=== PATIENT | female | born 1995 | race Caucasian/White ===

== ENCOUNTER 2022-03-27 23:42 | Emergency (ER) | payer OTHER, BC, SELFPAY ==
[2022-03-27 23:46] VITALS: BP 139/94; PULSE 95; RESP 14; TEMP 36.6; O2SAT 97; BMI 28.7
[2022-03-28 01:11] VITALS: BP 118/72; PULSE 78; RESP 15; O2SAT 99
[2022-03-28 01:17] LABS: Basophils % 0.5 %; Eosinophils # 0.1 10^3/uL (0.0-0.8); Eosinophils % 1.4 %; Hematocrit 37.8 % (37.0-47.0); Hemoglobin 12.2 g/dL (11.5-15.3); Lymphocytes # 2.1 10^3/uL (0.8-4.8); Lymphocytes % 26.5 %; Mean Corpuscular HGB Conc 32.3 g/dL (30.0-36.0); Mean Corpuscular Hemoglobin 26.9 pg (28.0-34.0); Mean Corpuscular Volume 83.4 fl (81-99); Mean Platelet Volume 10.3 fL (7.4-10.4); Monocytes # 0.6 10^3/uL (0.2-0.9); Monocytes % 7.5 %; Neutrophils # 5.18 10^3/uL (1.8-7.7); Nucleated Red Blood Cells % 0 %; Platelet Count 263 10^3/cmm (130-400); Red Blood Count 4.53 10^6/uL (4.1-5.3); Red Cell Distribution Width 12.8 % (12.1-15.1); White Blood Count 8.1 10^3/uL (4.0-10.0)
--- NOTE | 2022-03-28 01:23 | CTR_ITS ---
PROCEDURE INFORMATION: Exam: CT Abdomen And Pelvis Without Contrast Exam date and time: 03/28/2022 2:02 AM Age: 26 years old Clinical indication: Abdominal pain; Patient HX: C/O left flank pain with nausea. Five weeks post . ; Additional info: Concern for renal stone, hcg not back yet, but PT 5 weeks post- and denies any TECHNIQUE: Imaging protocol: Computed tomography of the abdomen and pelvis without contrast. Radiation optimization: All CT scans at this facility use at least one of these dose optimization techniques: automated exposure control; mA and/or kV adjustment per patient size (includes targeted exams where dose is matched to clinical indication); or iterative reconstruction. COMPARISON: No relevant prior studies available. RADIATION DOSE METRICS: Total DLP (mGy-cm): 807.83 FINDINGS: Lungs: The lung bases are clear. Liver: Unremarkable. Gallbladder and bile ducts: No definite gallbladder abnormality by CT. No biliary tree dilation. Pancreas: Unremarkable. Spleen: Unremarkable. Adrenal glands: Unremarkable. Kidneys and ureters: Several small left intrarenal calculi. Moderate left hydronephrosis and hydroureter. There is a 4 mm distal left ureteral calculus, at the UVJ. Several small right intrarenal calculi. No right hydronephrosis or visible right ureteral calculus. Stomach and bowel: No significant bowel distention. There are no CT findings to strongly suggest diverticulitis. Appendix: The appendix is possibly identified, and there are no suspicious findings for appendicitis. No pericecal inflammatory changes are seen. Intraperitoneal space: No free intraperitoneal air, or ascites. Vasculature: No evidence for abdominal aortic aneurysm. Lymph nodes: No retroperitoneal adenopathy. Urinary bladder: Suspect mild to moderate diffuse urinary bladder wall thickening. Evaluation is somewhat limited, as the bladder is not well distended. While nonspecific, this could indicate evidence for cystitis. Please correlate clinically. 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 Bones/joints: No significant acute finding. Soft tissues: Very small umbilical hernia, containing only fat. CT/CT kidney stone [id number] IMPRESSION: 1. 4 mm distal left ureteral calculus, see additional details above. 2. Moderate left hydronephrosis and hydroureter. 3. Bilateral intrarenal calculi. 4. Suspected urinary bladder wall thickening, see above. 5. Other findings discussed above.
[2022-03-28 01:33] LABS: HCG, Serum Qual Negative (Negative)
[2022-03-28 01:37] LABS: Alanine Aminotransferase 27 U/L (0-33); Albumin Level 4.2 g/dL (3.5-5.2); Alkaline Phosphatase 97 U/L (35-105); Anion Gap 16.5 (5-19); Blood Urea Nitrogen 9 mg/dL (6-20); Calcium 8.9 mg/dL (8.5-10.5); Carbon Dioxide 24 mmol/L (22-29); Chloride 105 mmol/L (98-107); Globulin 2.7 g/dL (1.3-4.6); Glomerular Filtration Rate 76.9 mL/min (90-130); Glucose 103 mg/dL (65-115); Lipase 18 U/L (13-60); Osmolality Calculated 291 mOsm/kg (285-295); Potassium 4.5 mmol/L (3.5-5.1); Sodium 141 mmol/L (136-145); Total Bilirubin 0.3 mg/dL (0.15-1.2); Total Protein 6.9 g/dL (6.6-8.7)
[2022-03-28 01:42] LABS: Urine Appearance Cloudy (CLEAR); Urine Color Yellow (Yellow)
[2022-03-28 01:44] LABS: Glucose Urine UA Norm (Normal); Ketones Urine 1+ (Negative); Protein Urine 1+ (Negative); pH Urine 5 (5-7)
[2022-03-28 01:45] LABS: Add Urine Culture? No; Add Urine Microscopic? YES; Amorphous Sediment Urine 3+ /hpf; Bilirubin Urine Neg (Negative); Blood Urine 3+ (Negative); Leukocyte Esterase Urine Trace (Negative); Nitrate Urine Negative (Negative); Urobilinogen Urine 1 mg/dL (Negative); WBC Urine 0-4 /hpf (0-5)
[2022-03-28 01:46] LABS: Aspartate Amino Transferase 5 U/L (0-32)
[2022-03-28] MEDS: ibuprofen 800 mg tablet PO (02:32)
[2022-03-28 02:50] VITALS: BP 127/72; PULSE 82; RESP 15; O2SAT 99
--- NOTE | 2022-03-28 03:03 | ED_ITS ---
Documented by User: Ysabel Chaves DISABILITY CASE MANAGER-C 03/28/22 03:09 HPI - Back Pain/Injury General: Chief Complaint: Back Pain/Injury Stated Complaint: Possible Kidney Stone Time Seen by Provider: 03/28/22 01:06 History of Present Illness: Patient is in today reporting that she thinks she has a kidney stone. Patient reports that she was having some frequency and burn ing with urination all day but then about 7:00 at night started having some left sided back pain. She reports that she has had many kidney stones in the past without stones approximately 3 years ago. She reports that she did go ahead and take some Zofran at home. She reports that she is 5 weeks and breast-feeding her . She denies any fever or chills. Associated symptoms: Reports urinary urgency; Deny chills or fever(s) Review of Systems Const: Denies: fever(s), chills or body aches Card: Denies: chest pain, palpitations or irregular heart rhythm Resp: Denies: dyspnea, productive cough or non-productive cough : Reports: flank pain, urinary frequency, urinary urgency and urinary hesitancy Physical Exam Const: COMMON NORMALS: patient oriented x3 and alert OTHER: Patient does appear in pain. Had a discussion with patient about pain medication and she does not want to take anything that would necessarily alter her breast-feeding. Neck/C-Spine: COMMON NORMALS: no JVD Resp: COMMON NORMALS: normal respiratory effort, No use of accessory muscles and clear to auscultation bilaterally AUSCULTATION: clear to auscultation bilaterally Cardio: COMMON NORMALS: no JVD, regular rate, regular rhythm, S1 normal heart sound present, S2 normal heart sound present and No murmurs present (Cardio) RATE: regular rate RHYTHM: regular rhythm HEART SOUNDS: S1 normal heart sound present and S2 normal heart sound present GI: COMMON NORMALS: Normal to inspection, nondistended, normoactive bowel sounds present, Soft to palpation and non-tender PALPATION: Yes Soft to palpation : BLADDER/KIDNEY EXAM: Yes CVA tenderness on the left Back/Pelvis: GENERAL BACK: Yes CVA tenderness Neuro: COMMON NORMALS: patient oriented x3 SENSORIUM/ORIENTATION: Yes alert Course Vital Signs: Vital signs: Vital Signs Temperature 97.8 F 03/27/22 23:46 Pulse Rate 71 03/28/22 05:05 Respiratory Rate 14 03/28/22 05:05 Blood Pressure 136/81 03/28/22 05:05 Pulse Oximetry 95 03/28/22 05:05 Oxygen Delivery Me thod 03/28/22 05:05 MDM - Back Pain/Injury Medical Decision Making Differentials include renal stone, UTI, pyelonephritis Ordered patient ibuprofen one-time dose for anti-inflammatory effect. Patient became upset and wanted to discuss different pain medication. We discussed other pain medication options but I recommended that she would need to pump and dump for a period of time to be safe for breast-feeding. Patient discussed this with her spouse and then decided that she did not want to have pain medication at this time. Morphine was ordered. Patient is already had 8 mg of Zofran just before arrival. Meclizine ordered x1 dose. Awaiting CT results. UA shows 3+ hematuria. Labs 03/28/22 01:05 03/28/22 01:05 Radiology Impressions Abdomen/Pelvis CT 03/28/22 01:23 IMPRESSION: 1. 4 mm distal left ureteral calculus, see additional details above. 2. Moderate left hydronephrosis and hydroureter. 3. Bilateral intrarenal calculi. 4. Suspected urinary bladder wall thickening, see above. 5. Other findings discussed above. Laboratory Results WBC 8.1 10^3/uL (4.0-10.0) 03/28/22 01:05 RBC 4.53 10^6/uL (4.1-5.3) 03/28/22 01:05 Hgb 12.2 g/dL (11.5-15.3) 03/28/22 01:05 Hct 37.8 % (37.0-47.0) 03/28/22 01:05 MCV 83.4 fl (81-99) 03/28/22 01:05 MCH 26.9 pg (28.0-34.0) L 03/28/22 01:05 MCHC 32.3 g/dL (30.0-36.0) 03/28/22 01:05 RDW 12.8 % (12.1-15.1) 03/28/22 01:05 Plt Count 263 10^3/cmm (130-400) 03/28/22 01:05 MPV 10.3 fL (7.4-10.4) 03/28/22 01:05 Neut % (Auto) 64.0 % 03/28/22 01:05 Lymph % (Auto) 26.5 % 03/28/22 01:05 Richardson % (Auto) 7.5 % 03/28/22 01:05 Eos % (Auto) 1.4 % 03/28/22 01:05 Baso % (Auto) 0.5 % 03/28/22 01:05 Neut # (Auto) 5.18 10^3/uL (1.8-7.7) 03/28/22 01:05 Lymph # (Auto) 2.1 10^3/uL (0.8-4.8) 03/28/22 01:05 Richardson # (Auto) 0.6 10^3/uL (0.2-0.9) 03/28/22 01:05 Eos # (Auto) 0.1 10^3/uL (0.0-0.8) 03/28/22 01:05 Baso # (Auto) 0.0 10^3/uL (0.0-0.1) 03/28/22 01:05 Nucleated RBC % (auto) 0 % 03/28/22 01:05 Nucleated RBCs # 0.0 /100WBC 03/28/22 01:05 Sodium 141 mmol/L (136-145) 03/28/22 01:05 Potassium 4.5 mmol/L (3.5-5.1) 03/28/22 01:05 Chloride 105 mmol/L (98-107) 03/28/22 01:05 Carbon Dioxide 24 mmol/L (22-29) 03/28/22 01:05 Anion Gap 16.5 (5-19) 03/28/22 01:05 BUN 9 mg/dL (6-20) 03/28/22 01:05 Creatinine 0.9 mg/dL (0.5-0.9) 03/28/22 01:05 GFR Calculation 76.9 mL/min (90-130) L 03/28/22 01:05 Glucose 103 mg/dL (65-115) 03/28/22 01:05 Calculated Osmolality 291 mOsm/kg (285-295) 03/28/22 01:05 Calcium 8.9 mg/dL (8.5-10.5) 03/28/22 01:05 Total Bilirubin 0.3 mg/dL (0.15-1.2) 03/28/22 01:05 AST 5 U/L (0-32) 03/28/22 01:05 ALT 27 U/L (0-33) 03/28/22 01:05 Alkaline Phosphatase 97 U/L (35-105) 03/28/22 01:05 Total Protein 6.9 g/dL (6.6-8.7) 03/28/22 01:05 Albumin 4.2 g/dL (3.5-5.2) 03/28/22 01:05 Globulin 2.7 g/dL (1.3-4.6) 03/28/22 01:05 Lipase 18 U/L (13-60) 03/28/22 01:05 HCG, Qual Negative (Negative) 03/28/22 01:05 Urine Color Yellow (Yellow) 03/27/22 23:57 Urine Appearance Cloudy (CLEAR) A 03/27/22 23:57 Urine pH 5 (5-7) 03/27/22 23:57 Ur Specific [place] 1.030 (1.005-1.030) 03/27/22 23:57 Urine Protein 1+ (Negative) H 03/27/22 23:57 Urine Glucose (UA) Norm (Normal) 03/27/22 23:57 Urine Ketones 1+ (Negative) H 03/27/22 23:57 Urine Blood 3+ (Negative) H 03/27/22 23:57 Urine Nitrate Negative (Negative) 03/27/22 23:57 Urine Bilirubin Neg (Negative) 03/27/22 23:57 Urine Urobilinogen 1 mg/dL (Negative) H 03/27/22 23:57 Ur Leukocyte Esterase Trace (Negative) H 03/27/22 23:57 Urine RBC 10-15 /hpf (0-2) H 03/27/22 23:57 Urine WBC 0-4 /hpf (0-5) H 03/27/22 23:57 Ur Squamous Epith Cells 5-10 /hpf (0-5) H 03/27/22 23:57 Amorphous Sediment 3+ /hpf 03/27/22 23:57 Urine Bacteria None /hpf (NONE) 03/27/22 23:57 Discharge Plan Discharge Patient Disposition: Home Clinical Impression: Kidney stone Condition: Stable Prescriptions: New hydrocodone-acetaminophen 5-325 mg tablet 1 tab PO Q6H PRN (Reason: pain) Qty: 14 0RF ondansetron 4 mg tablet,disintegrating 4 mg PO Q6H PRN (Reason: nausea and vomiting) Qty: 14 0RF Discharge Orders: Discharge ED (Routine); Ordered 03/28/22 Ordered By: Zhen Moore Referrals: Flaquito Rodriguez MD [Physician] - 1-3 days Discharge Diet: Advance as tolerated Discharge Activity: Resume usual activity Patient Instructions: Kidney Stones (ED), Opioid Safety Coding Level of Care Code ED Personnel Associate for Chg Fwd Exam Detailed Documented by User: Zhen Moore MD 03/28/22 05:36 HPI - Back Pain/Injury General: Chief Complaint: Back Pain/Injury Stated Complaint: Possible Kidney Stone Time Seen by Provider: 03/28/22 01:06 Course Vital Signs: Vital signs: Vital Signs Temperature 97.8 F 03/27/22 23:46 Pulse Rate 71 03/28/22 05:05 Respiratory Rate 14 03/28/22 05:05 Blood Pressure 136/81 03/28/22 05:05 Pulse Oximetry 95 03/28/22 05:05 Oxygen Delivery Me thod 03/28/22 05:05 MDM - Back Pain/Injury Medical Decision Making Differentials include renal stone, UTI, pyelonephritis Ordered patient ibuprofen one-time dose for anti-inflammatory effect. Patient became upset and wanted to discuss different pain medication. We discussed other pain medication options but I recommended that she would need to pump and dump for a period of time to be safe for breast-feeding. Patient discussed this with her spouse and then decided that she did not want to have pain medication at this time. Morphine was ordered. Patient is already had 8 mg of Zofran just before arrival. Meclizine ordered x1 dose. Awaiting CT results. UA shows 3+ hematuria. CT shows a 4 mm kidney stone her pain is resolved here she is stable for discharge we will discharge her with a strainer follow-up with urology and prescribe her pain meds. She is to return if worsening. Labs 03/28/22 01:05 03/28/22 01:05 Radiology Impressions Abdomen/Pelvis CT 03/28/22:
[2022-03-28 03:29] VITALS: RESP 16
[2022-03-28] MEDS: morphine 4 mg/mL SDV 1 mL 2 MG IVP (03:29)
[2022-03-28] MEDS: meclizine 25 mg tablet PO (03:29)
[2022-03-28 05:03] VITALS: RESP 16
[2022-03-28] MEDS: HYDROmorphone 1 mg/mL INJ 1 mL 0.5 MG IVP (05:03)
[2022-03-28] MEDS: ondansetron 2 mg/ML SDV 2 mL 4 MG IVP (05:04)
[2022-03-28 05:05] VITALS: BP 136/81; PULSE 71; RESP 14; O2SAT 95
[2022-03-28 05:51] VITALS: BP 105/55; PULSE 71; RESP 14; O2SAT 96
--- NOTE | 2022-03-28 09:20 | DCPLANNER ---
Addendum entered by Karen Marie 03/30/22 13:05: Patient had a follow up appointment scheduled with urology - patient did attend appointment. Original Note: manager foreign had message to schedule a follow up appointment for patient with urology. manager foreign sent patients information will be printed and reviewed. Clinic will call patient with appointment information.
== END 2022-03-28 05:53 | disposition home or self-care (01) ==
PROVIDERS: Emergency Provider Emergency Medicine
DX: N13.2 Hydronephrosis with renal and ureteral calculous obstruction (principal)
CPT/HCPCS: 74176; 80053; 81001; 83690; 84703; 85025; 96374; 96375; 99285; J1170; J2270; J2405; J8597

== ENCOUNTER 2022-03-30 10:59 | Outpatient (CLI) | payer OTHER, BC, SELFPAY ==
--- NOTE | 2022-03-30 11:12 | XR_ITS ---
WS: [id number] K[facility], AP view, 03/30/2022 Clinical Data: stones Comparison: None. Findings: No abnormal intraabdominal masses or calcifications are seen. There is no dilatated small bowel or ev idence of obstruction. There is moderate fecal material throughout the colon. XR/XR KUB [id number] Impression: Negative KUB.
== END 2022-03-30 11:00 | disposition home or self-care (01) ==
LOC: RAD 11:01
PROVIDERS: Visit Provider Urology
DX: N20.0 Calculus of kidney (principal)
CPT/HCPCS: 74018; 81003

== ENCOUNTER 2022-04-13 08:51 | Outpatient (CLI) | payer OTHER, BC, SELFPAY ==
--- NOTE | 2022-04-13 08:59 | XR_ITS ---
WS: [id number] XR KUB [id number] REASON FOR EXAM: STONES FINDINGS: The tiny calculi identified in both kidneys on the CT scan of 03/28/2022 are not identifiable on this p arben radiograph. On the examination of 03/30/2022 a calculus congruent with the distal left ureteral calculus demonstrat ed on the CT scan of 03/27/2022, is noted in the left lower pelvis. On the current examination this filiberto culus is not identifiable. No other urinary tract calculi are identifiable. XR/XR KUB [id number] IMPRESSION: Previously identified distal left ureteral calculus of 03/30/2022 is no longer id entifiable.
== END 2022-04-13 08:52 | disposition home or self-care (01) ==
LOC: RAD 08:55
PROVIDERS: PCP Family Medicine; Visit Provider Urology
DX: N20.1 Calculus of ureter (principal)
CPT/HCPCS: 74018; 81003